=== PATIENT | male | born 1970 | race Caucasian/White ===

== ENCOUNTER 2022-01-05 10:40 | Emergency (ER) | payer OTHER, SELFPAY ==
[2022-01-05 10:42] VITALS: BP 144/91; PULSE 101; RESP 17; TEMP 36.4; O2SAT 100
--- NOTE | 2022-01-05 10:43 | NURSING ---
NO OLD EKGS
--- NOTE | 2022-01-05 10:49 | NURSING ---
NO OLD EKGS
--- NOTE | 2022-01-05 10:53 | EKG12_ITS ---
Test Reason : CP Blood Pressure : / mmHG Vent. Rate : 092 BPM Atrial Rate : 092 BPM P-R Int : 146 ms QRS Dur : 090 ms QT Int : 400 ms P-R-T Axes : 045 005 013 degrees QTc Int : 494 ms Normal sinus rhythm Prolonged QT Abnormal ECG Confirmed by MAYLIN RODRIGUEZ, NELLY ([id number]), digital editor KUNAL COSTA ([id number]) on 01/07/2022 10:05:14 AM Referred By: ELODIA Confirmed By:CEDRICK CARLISLE MD
--- NOTE | 2022-01-05 10:54 | ED.VIS.CHEST ---
HPI History of Present Illness Chief Complaint: Chest Pain Detail of Chief Complaint: Chest discomfort x3 days Informant: patient Narrative Narrative: Patient presents the emergency department discomfort in his chest for the last 3 days. Patient states that he feels a mild ache in the left chest. Today he noticed some numbness that is faint to the left arm and became concerned. Patient has no family history heart disease. Patient himself has no history of coronary artery disease. Patient tells me he has otherwise no medical history. He does have some history of anxiety but does not take any medications. Patient currently rates the discomfort in his chest as a maybe a 1 or 2 out of 10. Patient tells me he does not really think there is anything wrong but because of his age he wanted to get checked out. He denies recent travel or surgery. No history of PE or DVT. Prior Similar Symptoms: No PFSH PFSH Medical History no medical history Home Medications NK 01/05/22 [History Last Taken Unknown] Allergy/AdvReac Type Severity Reaction Status Date / Time Penicillins Allergy Rash Verified 01/05/22 10:41 Family History no significant family his Surgical History no surgical history Social History Smoking Status: Never smoker ROS ROS ED Review of Systems ROS Unobtainable: other Constitutional Constitutional ED: Reports lethargy; Denies chills, fever(s), sweats or weight loss Eyes Eyes: Denies blurry vision, change in vision or diplopia ENT ENT ED: Denies rhinorrhea or sore throat Cardiovascular Cardiovascular: Reports chest pain; Denies orthopnea or racing heartbeat Respiratory/Chest Respiratory/Chest: Denies cough, dyspnea, dyspnea on exertion, orthopnea or sputum Gastrointestinal Gastrointestinal: Denies abdominal pain, diarrhea, nausea or vomiting Genitourinary Genitourinary ED: Denies dysuria, hematuria or urinary frequency Musculoskeletal Musculoskeletal: Denies arthralgias, back pain, myalgias or neck pain Integumentary Denies abscess, Abrasions or rash Neurologic Neurologic: Denies headache(s) or weakness Psychiatric Psychiatric: Denies anxiety, depression or suicidal thoughts Endocrine Endocrinology: Denies polydipsia, polyphagia or polyuria Hematologic/Lymphatic Hematologic/Lymphatic: Denies easy bleeding, easy bruising or lymphadenopathy Allergic/Immunologic Allergic/Immunologic ED: Denies mouth swelling, tongue swelling or urticaria EXAM Physical Exam Const Vital Signs: 01/05/22 10:42 01/05/22 11:31 01/05/22 13:17 Temperature 97.5 F L Temperature Source Temporal Pulse Rate 101 H 77 Respiratory Rate 17 16 Blood Pressure 144/91 H 121/87 H Blood Pressure Mean 108 98 Pulse Ox 100 98 Oxygen Delivery Method Room Air Room Air Room Air Positive well nourished and well developed General Appearance ED: well developed and NAD HEENT Reports TM's clear and moist mucous membranes normocephalic and atraumatic; Negative for trauma or tenderness Tympanic Membrane ED: Yes TM's clear Eyes PERRL and EOMs intact bilaterally General Eye ED: Negative for pale conjunctiva or scleral icterus Neck no lymphadenopathy, supple and no JVD General: Negative for tenderness Chest Wall inspection of chest normal and palpation of chest normal Chest: Negative for tenderness Resp normal respiratory effort and clear to auscultation bilaterally Effort and Inspection: Negative for respiratory distress or pain with movement Auscultation: Negative for rhonchi, wheezes or diminished lung sounds Cardio regular rate, regular rhythm, S1 normal heart sound, S2 normal heart sound and no murmurs Peripheral Pulses: pulses 2+ throughout GI normal to inspection, nondistended, normoactive bowel sounds, soft to palpation, non-tender, non-distended and no masses Back/Spine no CVA tenderness and no thoracic nor lumbar tenderness Extremity normal to inspection General Extremety ED: Negative for edema General Extremity: Negative for edema Neuro oriented x3, CN's II-XII intact bilaterally, no sensory deficits noted and gait normal Sensorium / Orientation: awake, alert, oriented to person, oriented to place and oriented to time Motor Exam: strength 5/5 throughout and strength abnormal Psych mental status grossly normal Skin no rashes or lesions noted and no wounds Heart Score History: Slightly/Non-Suspicious ECG: Normal Age: >45 - <65 years Risk Factors: No Risk Factors Troponin: </= Normal Limit Score: 1 MDM MDM MDM Narrative Medical decision making narrative: IV line established arrival. Lab work-up was normal. Heart score was 1. He is low risk for acute coronary syndrome. I suspect more likely an anxiety component. 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 Patient to return if worsening pain, exertional dyspnea, worsening chest pain, or condition should worsen anyway. Lab Data Attestation: I reviewed the patient's lab results. Labs: Laboratory Results - last 24 hr 01/05/22 01/05/22 10:55 10:55 WBC 5.3 RBC 5.16 Hgb 16.1 Hct 46.2 MCV 89.5 MCH 31.2 MCHC 34.8 RDW Std Deviation 39.1 RDW Coeff of Shital 11.9 Plt Count 186 MPV 11.1 Immature Gran % (Auto) 0.600 Neut % (Auto) 60.0 Lymph % (Auto) 25.0 [place] % (Auto) 10.2 H Eos % (Auto) 2.3 Baso % (Auto) 1.9 H Absolute Neuts (auto) 3.2 Absolute Lymphs (auto) 1.32 Nucleated RBC % 0 Sodium 141 Potassium 3.7 Chloride 108 H Carbon Dioxide 26.0 Anion Gap 7 BUN 15 Creatinine 1.00 Estim Creat Clear Calc 103.89 Est GFR (MDRD) Af Amer 102 Est GFR (MDRD) Non-Af 85 BUN/Creatinine Ratio 15.0 Glucose 102 Calcium 9.0 Troponin I High Sens 5 Radiography Chest X-Ray - ED: 1 View Diagnostic Testing: Clinical Impression(s) from Imaging Studies Chest X-Ray 01/05/22 11:03 IMPRESSION: No acute cardiopulmonary disease. Electronically Signed: Jorge Noe MD at 11:14 EDT , 1 view chest x-ray obtained interpreted by myself no acute disease process. Radiology in agreement. EKG Initial EKG: Attestation: I personally reviewed and interpreted this EKG as follows: Comments: Sinus rhythm with a ventricular rate of 92 bpm with no acute ST segment changes noted. Patient noted to have prolonged QT. Discharge Plan Triage Chief Complaint: Chest Pain ED Provider: Garcia Heck Dx/Rx/DC Orders Clinical Impression: Chest pain Instructions: ED Chest Pain, Uncertain Cause Prescriptions: No Action NK Primary Care Provider: Care Physician,No Primary Referrals: Edmundo Weinberg MD [Med Staff - Flush Tester] - 3-5 Days Care Physician,No Primary [Primary Care Provider] - Disposition Disposition: Home, Self Care
--- NOTE | 2022-01-05 11:03 | RAD_ITS ---
EXAM: XR CHEST, 1 VIEW CLINICAL INDICATION: chest pain TECHNIQUE: Frontal view of the chest. This report was created using [employer] report generation technology. COMPARISON: None. FINDINGS: LUNGS AND PLEURAL SPACES: Normal. No consolidation or edema. No pneumothorax. No effusion. HEART: Normal heart size. MEDIASTINUM: No mediastinal or hilar mass. BONES/JOINTS: No acute abnormality. SOFT TISSUES: Normal. RAD/Chest 1 View (Portable) IMPRESSION: No acute cardiopulmonary disease. Electronically Signed: Jorge Noe MD at 11:14 EDT ,
[2022-01-05 11:12] LABS: Absolute Lymphocyte Count 1.32 X10^3/uL (0.83-4.51); Absolute Neutrophil Count 3.2 X10^3/uL (2.0-7.7); Basophil% 1.9 % (0-1); Eosinophil# 0.12 X10^3/uL; Eosinophils% 2.3 % (0-5); Hematocrit 46.2 % (40-54); Hemoglobin 16.1 g/dL (13.0-16.5); Lymphocyte # 1.32 X10^3/ul (0.83-4.51); Mean Corp Hgb Conc 34.8 g/dL (32-36); Mean Corpuscular Hgb 31.2 pg (27.0-32.0); Mean Corpuscular Volume 89.5 fL (80-94); Mean Platelet Vol. 11.1 fl (6.2-12.0); Monocyte# 0.54 X10^3/uL; Monocyte% 10.2 % (0-10); NRBC Flagged by Analyzer 0 % (0-5); Neutrophil # 3.18 X10^3/uL (2.7-7.7); Platelet Count 186 K/mm3 (150-450); RBC Distribution Width CV 11.9 % (11.6-14.6); RBC Distribution Width SD 39.1 fl (35.1-43.9); Red Blood Count 5.16 M/mm3 (4.6-6.2); White Blood Count 5.3 K/mm3 (4.4-11.0)
[2022-01-05 11:28] LABS: Anion Gap 7 (5-15); BUN 15 mg/dL (7-18); Chloride 108 mmol/L (98-107); EST Glomerular Filtration Rate 85 mL/min (>60); Est Glom Filt Rate - Afr Amer 102 mL/min (>60); Estimated Creatinine Clearance 103.89 ml/min; Glucose 102 mg/dL (74-106); Potassium 3.7 mmol/L (3.5-5.1); Sodium Level 141 mmol/L (136-145)
[2022-01-05] MEDS: Aspirin 81 MG TAB.CHEW 324 MG PO (11:28)
[2022-01-05] MEDS: 0.9% Normal Saline 1,000 ML 150 ML IV (11:29)
[2022-01-05 13:17] VITALS: BP 121/87; PULSE 77; RESP 16; O2SAT 98
[2022-01-05 13:23] LABS: Troponin-I HS (w/2H Reflex) 5 pg/mL (3.0-78.0)
[2022-01-05 13:24] LABS: Reflex Troponin-HS? (from REC) Y
== END 2022-01-05 13:40 | disposition home or self-care (01) ==
PROVIDERS: Emergency Provider Emergency Medicine; Visit Provider Emergency Medicine
DX: R07.9 Chest pain, unspecified (principal); F41.9 Anxiety disorder, unspecified
CPT/HCPCS: 71045; 80048; 84484; 85025; 93005; 96360; 96361; 99284; J7030; A4216